=== PATIENT | female | born 1985 | race Caucasian/White ===

== ENCOUNTER 2016-09-11 04:34 | Emergency (ER) | payer MEDICAID ==
--- NOTE | 2016-09-11 04:42 | ED Physician Documentation ---
PD HPI FEMALE - Stated complaint Stated Complaint: FEMALE - Chief complaint Chief Complaint: UTI - History obtained from History obtained from: Patient - History of Present Illness Timing - onset: Today Timing - duration: Hours Timing - details: Abrupt onset, Still present Associated symptoms: Dysuria, Urinary frequency. No: Vaginal bleeding, Vaginal discharge, Genital sore/lesion Contributing factors: Sexually active. No: , Exposed to STD Similar symptoms before: Has not had sx before Recently seen: Not recently seen Review of Systems Constitutional: denies: Fever, Chills GI: denies: Nausea, Vomiting, Diarrhea : reports: Dysuria, Frequency. denies: Discharge Skin: denies: Rash, Lesions PD PAST MEDICAL HISTORY - Past Medical History : None - Past Surgical History Past Surgical History: No - Present Medications Home Medications: Ambulatory Orders Medication Instructions Recorded Confirmed Lorazepam [Ativan] 1 mg PO TID PRN #15 tablet 10/11/15 Phenazopyridine [Pyridium] 200 mg PO TID PRN #15 tablet 09/11/16 Sulfamethox/Trimeth 800/160 1 each PO BID #14 tablet 09/11/16 [Bactrim Ds 800/160] - Allergies Allergies/Adverse Reactions: Allergies Allergy/AdvReac Type Severity Reaction Status Date / Time No Known Drug Allergies Allergy Verified 10/11/15 11:59 - Social History Does the pt smoke?: Yes Smoking Status: Current every day smoker PD ED PE NORMAL - Vitals Vital signs reviewed: Yes - General General: Alert and oriented X 3, Well developed/nourished - Abdomen Abdomen: Soft, Non tender - Female Female : Deferred - Back Back: No CVA TTP - Derm Derm: Normal color, Warm and dry Results - Vitals Vitals: Vital Signs - 24 hr 09/11/16 04:40 Temperature 36.9 C Heart Rate 85 Respiratory 18 Rate Blood Pressure 135/83 H O2 Saturation 97 Oxygen O2 Source Room air - Labs Labs: Laboratory Tests 09/11/16 04:51 Urine Color LT. YELLOW Urine Clarity CLOUDY Urine pH 6.0 Ur Specific [place] 1.020 Urine Protein 100 H Urine Glucose (UA) NEGATIVE Urine Ketones NEGATIVE Urine Occult Blood LARGE H Urine Nitrite NEGATIVE Urine Bilirubin NEGATIVE Urine Urobilinogen 0.2 (NORMAL) Ur Leukocyte Esterase SMALL H Urine RBC 11-25 H Urine WBC 11-25 H Ur Squamous Epith Cells RARE Squamous Urine Bacteria None Seen Ur Microscopic Review INDICATED Urine Culture Comments INDICATED Urine HCG, Qual NEGATIVE PD MEDICAL DECISION MAKING - ED course Complexity details: considered differential, d/w patient Departure - Departure Disposition: 01 Home, Self Care Clinical Impression: Dysuria Urinary tract infection Qualifiers: Urinary tract infection type: acute cystitis Hematuria presence: with hematuria Qualified Code(s): N30.01 - Acute cystitis with hematuria Condition: Stable Record reviewed to determine appropriate education?: Yes Instructions: ED UTI Cystitis Female Prescriptions: Sulfamethox/Trimeth 800/160 [Bactrim Ds 800/160] 1 each PO BID #14 tablet Phenazopyridine [Pyridium] 200 mg PO TID PRN #15 tablet PRN Reason: Pain Comments: Drink lots of fluids. Phenazopyridine to help with urinary discomfort. Add Tylenol or Ibuprofen as needed for pains. Bactrim twice daily for the infection. Recheck if not improved over the next few days. Discharge Date/Time: 09/11/16 05:20
[2016-09-11 04:44] VITALS: BP 135/83
[2016-09-11] MEDS ORDERED: PHENAZOPYRIDINE 100 MG TABLET PO STA (04:48)
[2016-09-11] MEDS ORDERED: ACETAMINOPHEN 325 MG TABLET PO STA (04:48)
[2016-09-11] MEDS ORDERED: PHENAZOPYRIDINE 100 MG TABLET PO ONE (04:49)
[2016-09-11] MEDS ORDERED: ACETAMINOPHEN 325 MG TABLET PO ONE (04:49)
[2016-09-11 04:59] LABS: BILIRUBIN,URINE NEGATIVE (NEGATIVE)
[2016-09-11 05:00] LABS: HCG UR QUAL NEGATIVE; UA w/ MICROSCOPIC CHARGE YES
[2016-09-11] MEDS ORDERED: SULFAMETH/TRIMETH DS 800/160 MG TABLET PO STA (05:10)
[2016-09-11 05:13] LABS: UR CULTURE IF IND INDICATED
[2016-09-11] MEDS ORDERED: SULFAMETH/TRIMETH DS 800/160 MG TABLET PO ONE (05:15)
== END 2016-09-11 05:20 | disposition home or self-care (01) ==
LOC: ED 04:34
DX: N30.01 Acute cystitis with hematuria (principal); F17.200 Nicotine dependence, unspecified, uncomplicated
CPT/HCPCS: 81001; 81025; 87086; 99283; A9270; 81003

== ENCOUNTER 2016-10-17 17:44 | Emergency (ER) | payer MEDICAID ==
--- NOTE | 2016-10-17 19:02 | ED Physician Documentation ---
History of Present Illness - Stated complaint Stated Complaint: SOA/ RASH - Chief complaint Chief Complaint: Allergic Rx - History obtained from History obtained from: Patient - History of Present Illness Timing: Other (31-year-old with UTI diagnosed by culture a few days ago. She was placed on Macrobid but now feels itchy all over and had some resolved chest heaviness. She had bad side effects from sulfa last month.) Review of Systems Constitutional: denies: Fever, Chills Cardiac: denies: Chest pain / pressure, Palpitations Respiratory: denies: Dyspnea, Cough GI: denies: Abdominal Pain PD PAST MEDICAL HISTORY - Past Medical History Past Medical History: No : None Psych: Depression, Anxiety - Past Surgical History Past Surgical History: No - Present Medications Home Medications: Ambulatory Orders Medication Instructions Recorded Confirmed Ciprofloxacin HCl [Cipro] 500 mg PO BID #14 tablet 10/17/16 Citalopram [CeleXA] 10/17/16 Norgestimate-Ethinyl Estradiol 1 tab PO DAILY 10/17/16 10/17/16 [Ortho-Cyclen 28 Tablet] - Allergies Allergies/Adverse Reactions: Allergies Allergy/AdvReac Type Severity Reaction Status Date / Time No Known Drug Allergies Allergy Verified 10/17/16 18:33 - Social History Does the pt smoke?: Yes Smoking Status: Current every day smoker Does the pt drink ETOH?: Yes Does the pt have substance abuse?: No - Immunizations Immunizations are current?: Yes Immunizations: TDAP >10years/unknown PD ED PE NORMAL - Vitals Vital signs reviewed: Yes (MILD FEBRILE) - General General: Alert and oriented X 3, No acute distress - HEENT HEENT: Pharynx benign - Cardiac Cardiac: RRR, No murmur - Respiratory Respiratory: No respiratory distress, Clear bilaterally - Abdomen Abdomen: Normal bowel sounds, Soft, Non tender - Derm Derm: Normal color, Warm and dry - Extremities Extremities: No edema, No calf tenderness / cord - Neuro Neuro: Alert and oriented X 3, Normal speech Results - Vitals Vitals: Vital Signs - 24 hr 10/17/16 10/17/16 10/17/16 17:49 18:36 19:27 Temperature 38.2 C H 35.1 C L 36.4 C L Heart Rate 78 67 69 Respiratory 18 10 L 20 Rate Blood Pressure 120/85 H 111/82 H 108/75 O2 Saturation 100 100 100 Oxygen O2 Source Room air PD MEDICAL DECISION MAKING - ED course ED course: Normal exam with potential side effects from Macrobid, probably needs to be broadened anyway given the fever suggesting pyelonephritis. Departure - Departure Disposition: 01 Home, Self Care Clinical Impression: Pyelonephritis Urinary tract infection Qualifiers: Urinary tract infection type: acute cystitis Hematuria presence: without hematuria Qualified Code(s): N30.00 - Acute cystitis without hematuria Condition: Good Record reviewed to determine appropriate education?: Yes Instructions: ED UTI Cystitis Female Prescriptions: Ciprofloxacin HCl [Cipro] 500 mg PO BID #14 tablet Comments: AVOID MACROBID AND SULFA DRUGS IN THE FUTURE IF ABLE Discharge Date/Time: 10/17/16 19:27
[2016-10-17] MEDS ORDERED: CIPROFLOXACIN 250 MG TABLET PO STA (19:05)
[2016-10-17] MEDS ORDERED: CIPROFLOXACIN 250 MG TABLET PO ONE (19:20)
[2016-10-17 19:32] VITALS: BP 108/75
== END 2016-10-17 19:27 | disposition home or self-care (01) ==
LOC: ED 17:44
DX: N30.00 Acute cystitis without hematuria (principal); F17.200 Nicotine dependence, unspecified, uncomplicated
CPT/HCPCS: 99282; 99283; A9270

== ENCOUNTER 2018-06-19 20:41 | Emergency (ER) | payer MEDICAID, OTHER ==
[2018-06-19 20:49] VITALS: BP 115/75
[2018-06-19] MEDS ORDERED: FLUCONAZOLE 100 MG TABLET PO STA (21:01)
--- NOTE | 2018-06-19 21:03 | ED Physician Documentation ---
History of Present Illness - Stated complaint Stated Complaint: FEMALE - Chief complaint Chief Complaint: General - History obtained from History obtained from: Patient - History of Present Illness Timing: Other (This is a 32-year-old woman who is breast-feeding an who for the last 2-1/2 weeks has had shiny flaky skin of the right nipple associated with breast pain and sensitivity.) Review of Systems Constitutional: denies: Fever, Chills Throat: reports: Reviewed and negative Cardiac: reports: Reviewed and negative Respiratory: reports: Reviewed and negative PD PAST MEDICAL HISTORY - Past Medical History : None Psych: Depression, Anxiety - Past Surgical History Past Surgical History: No - Present Medications Home Medications: Ambulatory Orders Medication Instructions Recorded Confirmed Fluconazole 200 mg PO DAILY #14 tablet 06/19/18 - Allergies Allergies/Adverse Reactions: Allergies Allergy/AdvReac Type Severity Reaction Status Date / Time Sulfa (Sulfonamide Allergy Rash Verified 06/19/18 20:49 Antibiotics) - Social History Does the pt smoke?: Yes Smoking Status: Current every day smoker Does the pt drink ETOH?: Yes Does the pt have substance abuse?: No - Immunizations Immunizations are current?: Yes Immunizations: TDAP >10years/unknown PD ED PE NORMAL - Vitals Vital signs reviewed: Yes - General General: Alert and oriented X 3, No acute distress - Derm Derm: Other (Right breast was examined with Araceli DIAMOND present. She has kind of shiny flaky skin of the areola and a red nipple, but there is no evidence of mastitis.) - Neuro Neuro: Alert and oriented X 3, Normal speech Results - Vitals Vitals: Vital Signs - 24 hr 06/19/18 20:46 Temperature 35.7 C L Heart Rate 80 Respiratory 15 Rate Blood Pressure 115/75 O2 Saturation 99 Oxygen O2 Source Room air PD MEDICAL DECISION MAKING - ED course ED course: She appears to have Gabi of the nipple. Notes that her child does not appear to have thrush currently. Departure - Departure Disposition: 01 Home, Self Care Clinical Impression: Candidiasis of breast Condition: Good Record reviewed to determine appropriate education?: Yes Instructions: ED Candidiasis Cutaneous Prescriptions: Fluconazole 200 mg PO DAILY #14 tablet Comments: Call your doctor to arrange a follow-up appointment, make the next available appointment. In the interim, return anytime if worse or if new symptoms develop.
== END 2018-06-19 21:10 | disposition home or self-care (01) ==
LOC: ED 20:41
DX: O91.02 Infection of nipple associated with the puerperium (principal); F17.200 Nicotine dependence, unspecified, uncomplicated
CPT/HCPCS: 99283; A9270

== ENCOUNTER 2022-05-31 01:53 | Emergency (ER) | payer OTHER ==
--- NOTE | 2022-05-31 02:39 | ED Physician Documentation ---
PD HPI URI - Stated complaint Stated Complaint: CONGESTION/SOA - Chief complaint Chief Complaint: Resp - History obtained from History obtained from: Patient - Additional information Additional information: Patient is a 36-year-old female presenting for evaluation of feeling short of breath with a productive cough, nasal congestion and lightheadedness Since Sunday. Her young children at home have also been ill with URI symptoms and she is here with her 8-month-old who is also being evaluated for the same symptoms.She reports that her cough is productive of yellow sputum.She denies known fever, chest pain, abdominal pain, vomiting, dysuria or diarrhea. She reports not drinking much water. She does vape. She denies a history of asthma. She denies leg swelling, recent travel, history of PE. Review of Systems Constitutional: denies: Fever Nose: reports: Congestion Cardiac: denies: Palpitations Respiratory: reports: Dyspnea, Cough GI: denies: Abdominal Pain, Vomiting : denies: Dysuria Musculoskeletal: denies: Extremity swelling Neurologic: denies: Headache PD PAST MEDICAL HISTORY - Past Medical History Past Medical History: Yes : None Psych: Depression, Anxiety - Past Surgical History Past Surgical History: No - Present Medications Home Medications: Ambulatory Orders Medication Instructions Recorded Confirmed Albuterol Sulf [Ventolin Hfa 1 - 2 puffs INH Q4HR PRN #1 each 05/31/22 Inhaler] - Allergies Allergies/Adverse Reactions: Allergies Allergy/AdvReac Type Severity Reaction Status Date / Time avocado Allergy Edema Verified 05/31/22 02:00 Sulfa (Sulfonamide Allergy Rash Verified 05/31/22 02:00 Antibiotics) - Social History Does the pt smoke?: Yes Smoking Status: Current every day smoker Does the pt drink ETOH?: Yes Does the pt have substance abuse?: No - Immunizations Immunizations are current?: Yes Immunizations: TDAP >10years/unknown - POLST Patient has POLST: No PD ED PE NORMAL - General General: Alert and oriented X 3, No acute distress, Well developed/nourished - HEENT HEENT: Atraumatic, Moist mucous membranes, Pharynx benign - Neck Neck: Supple, no meningeal sign - Cardiac Cardiac: No murmur, Other (Tachycardic, regular rhythm) - Respiratory Respiratory: No respiratory distress, Other (Diminished at the bases but otherwise clear) - Abdomen Abdomen: Soft, Non tender, Non distended - Derm Derm: Warm and dry - Neuro Neuro: Normal speech Results - Vitals Vitals: Vital Signs - 24 hr 05/31/22 05/31/22 05/31/22 02:01 02:50 03:08 Temperature 36.9 C Heart Rate 117 H 119 H 116 H Respiratory 20 20 22 Rate Blood Pressure 115/88 H 117/79 O2 Saturation 98 98 Oxygen O2 Source Room air - EKG (time done) 210 EKG releavant findings:: EKG personally interpreted by author of this note. Relevant findings are: Rate: Rate (enter#) (109) Rhythm: Sinus tachycardia Intervals: No: Prolonged QT Ischemia: No: ST elevation c/w ischemia Compare to prior EKG: Old EKG unavailable - Labs Labs: Laboratory Tests 05/31/22 02:20 Nasal Adenovirus (PCR) NOT DETECTED Nasal B. parapertussis DNA (PCR) NOT DETECTED Nasal Coronavir 229E PCR NOT DETECTED Nasal Coronavir HKU1 PCR NOT DETECTED Nasal Coronavir NL63 PCR NOT DETECTED Nasal Coronavir OC43 PCR NOT DETECTED Nasal Enterovir/Rhinovir PCR NOT DETECTED Nasal Influenza B PCR NOT DETECTED Nasal Influenza A PCR NOT DETECTED Nasal Parainfluen 1 PCR NOT DETECTED Nasal Parainfluen 2 PCR NOT DETECTED Nasal Parainfluen 3 PCR NOT DETECTED Nasal Parainfluen 4 PCR NOT DETECTED Nasal RSV (PCR) DETECTED A Nasal B.pertussis DNA PCR NOT DETECTED Nasal C.pneumoniae (PCR) NOT DETECTED Fox Human Metapneumo PCR NOT DETECTED Nasal M.pneumoniae (PCR) NOT DETECTED Nasal SARS-CoV-2 (PCR) NOT DETECTED PD Medical Decision Making - ED course Complexity details: reviewed results, re-evaluated patient, d/w patient ED course: Patient presenting for evaluation of cough and congestion last Sunday. She is noted to be tachycardic but otherwise vital signs are stable.She is able to hold a full conversation without any signs of labored breathing.Lung sounds are slightly diminished at the bases. Patient was given a DuoNeb treatment with improvement in symptoms as well as aeration.Chest x-ray was obtained which I als o reviewed with no signs of pneumonia or effusion. An EKG was obtained at triage given her tachycardia which demonstrates a sinus tachycardia rhythm. Patient has no known risk factors for pulmonary embolism, ACS would also be very unlikely and her symptoms sound infectious in etiology. A respiratory swab was obtained and is positive for RSV. Patient remains slightly tachycardic throughout her ED course. I did offer IV with hydration And labs several times as patient had reported that she feels dehydrated. However patient continued to declined IV or IV fluids. She states that she is able to hydrate on her own.She understands the importance of hydration and the need for close follow-up with her PCP. Patient is advised on concerning symptoms to return for. Departure - Departure Disposition: 01 Home, Self Care Clinical Impression: URI with cough and congestion, Sinus tachycardia, RSV infection Condition: Stable Instructions: ED Viral Syndrome Prescriptions: Albuterol Sulf [Ventolin Hfa Inhaler] 1 - 2 puffs INH Q4HR PRN #1 each PRN Reason: Shortness Of Air/Wheezing Comments: You were evaluated for cough and congestion which is likely related to a viral illness.Your chest x-ray does not show any clear pneumonia but the radiologist will read it in a few hours. If there is any discrepancy I will notify you and call in an antibiotic. Your heart rate was noted to be fast. This is likely related to a combination of factors which includes dehydration as you have reported you have not been drinking and much water. We did offer IV fluids which you have declined. I would recommend making sure you are staying hydrated and trying to drink plenty of fluid tonight before you go to bed as well as throughout the day tomorrow. This will not only help with your heart rate but also with keeping the mucus thin and make it easier for you to cough or expel up. Your respiratory panel is pending. This will check for COVID, influenza, RSV and a number of other common cold viruses. We will notify you if it is positive for COVID. Otherwise you can check the patient portal for your results. You should quarantine from others until you know your COVID result. Please continue with acetaminophen or ibuprofen as needed for fevers and body aches, plenty of fluids/hydration and rest. Return to the ER with any worsening symptoms such as difficulty breathing or vomiting. I would recommend close follow-up with your primary care doctor. I have also sent an albuterol inhaler [place] the [facility] [place] Discharge Date/Time: 05/31/22 03:35
[2022-05-31] MEDS: IPRATROPIUM/ALBUTEROL 3 ML NEB INH STA (02:57)
[2022-05-31 03:08] VITALS: BP 117/79
[2022-05-31 03:23] LABS: B. PARAPERTUSSIS- RESP PCR PAN NOT DETECTED; B. PERTUSSIS- RESP PCR PANEL NOT DETECTED; C. PNEUMONIAE- RESP PCR PANEL NOT DETECTED; CORONAVIRUS 229E-RESP PCR NOT DETECTED; CORONAVIRUS HKU1-RESP PCR NOT DETECTED; CORONAVIRUS NL63-RESP PCR NOT DETECTED; CORONAVIRUS OC43-RESP PCR NOT DETECTED; HUMAN METAPNEUMOVIRUS NOT DETECTED; INFLUENZA A- RESP PCR PANEL NOT DETECTED; INFLUENZA B - RESP PCR PANEL NOT DETECTED; M. PNEUMONIAE- RESP PCR PANEL NOT DETECTED; PARAINFLUENZA VIRUS 1 NOT DETECTED; PARAINFLUENZA VIRUS 2 NOT DETECTED; PARAINFLUENZA VIRUS 3 NOT DETECTED; PARAINFLUENZA VIRUS 4 NOT DETECTED; RHINOVIRUS/ENTEROVIRUS NOT DETECTED; RSV- RESP PCR PANEL DETECTED; SARS-CoV-2 -RESP PCR PANEL NOT DETECTED
--- NOTE | 2022-05-31 08:11 | XRAY Report ---
PROCEDURE: Chest 1 View X-Ray INDICATIONS: cough TECHNIQUE: One view of the chest was acquired. COMPARISON: None. FINDINGS: Surgical changes and devices: None. Lungs and pleura: No pleural effusions or pneumothorax. Lungs are clear. Mediastinum: Mediastinal contours appear normal. Heart size is normal. Bones and chest wall: No suspicious bony lesions. Overlying soft tissues appear unremarkable. IMPRESSION: No acute cardiopulmonary pathology. No discrepancies. Reviewed by: Pacheco Pena MD on 05/31/2022 8:10 AM PDT Approved by: Pacheco Pena MD on 05/31/2022 8:10 AM PDT Station ID: [id number]
== END 2022-05-31 03:35 | disposition home or self-care (01) ==
LOC: ED 01:53
DX: J06.9 Acute upper respiratory infection, unspecified (principal); B97.4 Respiratory syncytial virus as the cause of diseases classified elsewhere; R00.0 Tachycardia, unspecified; F17.200 Nicotine dependence, unspecified, uncomplicated; Z20.822 Contact with and (suspected) exposure to COVID-19
CPT/HCPCS: 87633; 93005; 94640; 94664; 99284